=== PATIENT | female | born 1955 | race Caucasian/White ===

== ENCOUNTER 2024-03-13 07:01 | Day surgery (SDC) | payer BC, MEDICARE ==
[2024-03-12 14:42] VITALS: BMI 31.4
[2024-03-13] MEDS ORDERED: EPINEPHrine 1 MG/ML VIAL ONE (10:53)
[2024-03-13] MEDS ORDERED: Lidocaine 1% (PF) 30 ML VIAL ONE (10:54)
[2024-03-13] MEDS ORDERED: PHENYLEPHRINE-NS 100 MCG/ML 10 ML SYRINGE ONE (10:56)
[2024-03-13] MEDS ORDERED: Dexamethasone 4 mg/ml Vial ONE (11:02)
[2024-03-13] MEDS ORDERED: Lidocaine 1% PF 5 ML VIAL ONE (11:02)
[2024-03-13] MEDS ORDERED: SUGAMMADEX SODIUM 200 MG/2 ML VIAL ONE (11:02)
[2024-03-13] MEDS ORDERED: SUCCINYLCHOLINE/SOD CL,ISO/PF 200 MG/10 ML SYRINGE FS ONE (11:02)
[2024-03-13] MEDS ORDERED: PROPOFOL 20 ML ONE (11:02)
[2024-03-13] MEDS ORDERED: Ondansetron PF 4 MG/2 ML Vial ONE (11:02)
[2024-03-13] MEDS ORDERED: fentaNYL PF 100 MCG/2 ML SYRINGE ONE (11:02)
[2024-03-13] MEDS ORDERED: Rocuronium Bromide 10 MG/ML (10ML VIAL) ONE (11:02)
[2024-03-13] MEDS ORDERED: CEFAZOLIN 1 GM VIAL ONE (11:25)
[2024-03-13] MEDS ORDERED: HYDROmorphone 2 MG/ML VIAL ONE (11:48)
[2024-03-13] MEDS ORDERED: Bacitracin Zinc Ointment 30 gm TUBE ONE (11:55)
[2024-03-13] MEDS ORDERED: HYDROcodone/Acetaminophen 5/325 mg Tablet ONE (15:15)
== END 2024-03-13 16:10 | disposition home or self-care (01) ==
LOC: SDC 07:01 → EDSTATUS 12:14 → SDC 16:10
PROVIDERS: ATTEND Specialist
PROC: 0CT90ZZ Resection of Left Parotid Gland, Open Approach (ICD-10-PCS; principal; 2024-03-13)
DX: C14.0 Malignant neoplasm of pharynx, unspecified (principal); C44.92 Squamous cell carcinoma of skin, unspecified; I10 Essential (primary) hypertension; F32.A Depression, unspecified; E03.9 Hypothyroidism, unspecified; H91.90 Unspecified hearing loss, unspecified ear; H91.93 Unspecified hearing loss, bilateral; D11.9 Benign neoplasm of major salivary gland, unspecified; D64.9 Anemia, unspecified; Z95.828 Presence of other vascular implants and grafts; Z79.899 Other long term (current) drug therapy; Z98.51 Tubal ligation status; Z88.0 Allergy status to penicillin; Z88.1 Allergy status to other antibiotic agents; Z88.8 Allergy status to other drugs, medicaments and biological substances; Z91.013 Allergy to seafood; Z91.018 Allergy to other foods; Z88.6 Allergy status to analgesic agent; Z85.41 Personal history of malignant neoplasm of cervix uteri; Z85.3 Personal history of malignant neoplasm of breast; Z88.5 Allergy status to narcotic agent
CPT/HCPCS: 42420; C1889; J0171; J0690; J1100; J1170; J2001; J2405; J2704; 88307